=== PATIENT | female | born 1935 | race African-American/Black ===

== ENCOUNTER 2022-05-29 14:06 | Inpatient (IN) | payer OTHER, MEDICARE ==
[2022-05-29 16:53] LABS: BASO % 0.9 % (0-2.0); EOS % 0.6 % (0-4.5); HEMATOCRIT 37.6 % (32.4-45.2); HEMOGLOBIN 12.5 GM/dL (10.7-15.3); LYMPH % 33.9 % (8-40); MCH 30.2 pg (25.7-33.7); MCHC 33.2 g/dl (32.0-36.0); MEAN CELL VOLUME 91.1 fl (80-96); MEAN PLT VOLUME 8.4 fl (7.5-11.1); MONO % 9.6 % (3.8-10.2); PLATELET COUNT 238 10^3/uL (134-434); RBC 4.13 M/mm3 (3.60-5.2); WHITE BLOOD COUNT 5.1 K/mm3 (4.0-10.0)
[2022-05-29 17:05] LABS: INR 0.99 (0.83-1.09); PROTHROMBIN TIME (PATIENT) 11.4 SEC (9.7-13.0)
[2022-05-29 17:08] LABS: ACTIVATED PTT 27.3 SECONDS (25.2-36.5)
[2022-05-29 17:11] LABS: BLOOD UREA NITROGEN 8.9 mg/dL (7-18)
[2022-05-29 17:12] LABS: ALBUMIN 3.1 g/dl (3.4-5.0)
[2022-05-29 17:15] LABS: CREATININE 0.7 mg/dL (0.55-1.3)
[2022-05-29 17:16] LABS: BILIRUBIN,TOTAL 0.4 mg/dL (0.2-1); TOT PROT 6.6 g/dl (6.4-8.2)
[2022-05-29] MEDS ORDERED: CEFTRIAXONE 1,000 MG in DEXTROSE 5%-WATER - 50 ML IVPB ONE (19:43)
[2022-05-29] MEDS ORDERED: AZITHROMYCIN IVPB 500 MG in DEXTROSE 5%-WATER - 250 ML IVPB ONE (19:43)
[2022-05-29] MEDS ORDERED: CEFTRIAXONE 1 GM/50 ML BAG ONE (20:43)
[2022-05-29] MEDS ORDERED: AZITHROMYCIN IVPB 500 MG/250 ML BAG IVPB ONE (21:14)
[2022-05-29 23:23] LABS: MAGNESIUM 1.9 mg/dL (1.8-2.4)
[2022-05-29 23:27] LABS: PHOSPHOROUS 2.5 mg/dL (2.5-4.9)
[2022-05-29] MEDS ORDERED: ATORVASTATIN CA 40 MG TABLET (FP) ONE (23:52)
[2022-05-30] MEDS ORDERED: PANTOPRAZOLE 40 MG TABLET PO ONE (08:59)
[2022-05-30] MEDS ORDERED: ASPIRIN 81 MG CHEWABLE TABLETS ONE (09:00)
[2022-05-30] MEDS ORDERED: DONEPEZIL HCL 5 MG TABLET (FP) ONE (09:00)
[2022-05-30] MEDS ORDERED: ENOXAPARIN NA (PORCINE) 40 MG/0.4 ML DISP.SYRIN SQ ONE (09:00)
[2022-05-30] MEDS: INSULIN (LEVEMIR) 100 UNITS/ML UNITS SQ SCH ×2 (09:06→23:16)
[2022-05-30] MEDS: DONEPEZIL HCL 10 MG TABLET (FP) PO SCH (09:06)
[2022-05-30] MEDS: ASPIRIN 81 MG CHEWABLE TABLETS PO SCH (09:07)
[2022-05-30] MEDS: ENOXAPARIN NA (PORCINE) 40 MG/0.4 ML DISP.SYRIN SQ SCH (09:07)
[2022-05-30] MEDS: CALCIUM 500MG/VIT-D 200 UNITS COMBO TABLET (FP) PO SCH (09:07)
[2022-05-30] MEDS: PANTOPRAZOLE 40 MG TABLET PO SCH (09:07)
[2022-05-30] MEDS: INSULIN SLIDING SCALE (NOVOLOG) 1 VIAL SQ SCH ×4 (09:36→23:19)
[2022-05-30 09:47] LABS: ALBUMIN 3.3 g/dl (3.4-5.0)
[2022-05-30 09:48] LABS: BLOOD UREA NITROGEN 9.2 mg/dL (7-18); MAGNESIUM 1.8 mg/dL (1.8-2.4)
[2022-05-30 09:51] LABS: CREATININE 0.8 mg/dL (0.55-1.3); PHOSPHOROUS 2.1 mg/dL (2.5-4.9)
[2022-05-30 10:18] LABS: BILIRUBIN,TOTAL 0.5 mg/dL (0.2-1); TOT PROT 6.7 g/dl (6.4-8.2)
[2022-05-30] MEDS: ATORVASTATIN CA 40 MG TABLET (FP) PO SCH (23:16)
[2022-05-31] MEDS: INSULIN SLIDING SCALE (NOVOLOG) 1 VIAL SQ SCH ×4 (06:04→22:14)
[2022-05-31] MEDS: INSULIN (LEVEMIR) 100 UNITS/ML UNITS SQ SCH ×2 (06:11→22:19)
[2022-05-31] MEDS: ENOXAPARIN NA (PORCINE) 40 MG/0.4 ML DISP.SYRIN SQ SCH (10:10)
[2022-05-31] MEDS: ASPIRIN 81 MG CHEWABLE TABLETS PO SCH (10:10)
[2022-05-31] MEDS: PANTOPRAZOLE 40 MG TABLET PO SCH (10:10)
[2022-05-31] MEDS: DONEPEZIL HCL 10 MG TABLET (FP) PO SCH (10:10)
[2022-05-31] MEDS: CALCIUM 500MG/VIT-D 200 UNITS COMBO TABLET (FP) PO SCH (10:10)
[2022-05-31 10:21] LABS: BASO % 0.5 % (0-2.0); EOS % 0.1 % (0-4.5); HEMATOCRIT 40.8 % (32.4-45.2); HEMOGLOBIN 13.8 GM/dL (10.7-15.3); MCH 30.4 pg (25.7-33.7); MCHC 33.8 g/dl (32.0-36.0); MEAN CELL VOLUME 89.8 fl (80-96); MEAN PLT VOLUME 8.3 fl (7.5-11.1); MONO % 7.3 % (3.8-10.2); NEUT % 75.1 % (42.8-82.8); PLATELET COUNT 343 10^3/uL (134-434); RBC 4.55 M/mm3 (3.60-5.2); RDW 13.9 % (11.6-15.6); WHITE BLOOD COUNT 6.8 K/mm3 (4.0-10.0)
[2022-05-31 10:46] LABS: CALCIUM 9.6 mg/dL (8.5-10.1)
[2022-05-31 10:47] LABS: ALBUMIN 3.5 g/dl (3.4-5.0); BLOOD UREA NITROGEN 12.4 mg/dL (7-18)
[2022-05-31 10:51] LABS: BILIRUBIN,TOTAL 0.6 mg/dL (0.2-1); TOT PROT 7.2 g/dl (6.4-8.2)
[2022-05-31] MEDS: GABAPENTIN 100 MG CAPSULE PO SCH (14:40)
[2022-06-01] MEDS: QUEtiapine FUMARATE 25 MG TABLET PO SCH ×2 (00:27→22:14)
[2022-06-01] MEDS: GABAPENTIN 100 MG CAPSULE PO SCH ×4 (00:32→22:14)
[2022-06-01] MEDS: ATORVASTATIN CA 40 MG TABLET (FP) PO SCH ×2 (00:32→22:14)
[2022-06-01] MEDS: INSULIN SLIDING SCALE (NOVOLOG) 1 VIAL SQ SCH ×4 (06:24→22:13)
[2022-06-01] MEDS: INSULIN (LEVEMIR) 100 UNITS/ML UNITS SQ SCH ×2 (06:30→22:13)
[2022-06-01] MEDS: CALCIUM 500MG/VIT-D 200 UNITS COMBO TABLET (FP) PO SCH (09:07)
[2022-06-01] MEDS: PANTOPRAZOLE 40 MG TABLET PO SCH (09:07)
[2022-06-01] MEDS: ASPIRIN 81 MG CHEWABLE TABLETS PO SCH (09:07)
[2022-06-01] MEDS: DONEPEZIL HCL 10 MG TABLET (FP) PO SCH (09:07)
[2022-06-01] MEDS: ENOXAPARIN NA (PORCINE) 40 MG/0.4 ML DISP.SYRIN SQ SCH (09:08)
[2022-06-01 10:29] LABS: BASO % 0.9 % (0-2.0); HEMATOCRIT 37.6 % (32.4-45.2); HEMOGLOBIN 12.6 GM/dL (10.7-15.3); LYMPH % 30.4 % (8-40); MCH 30.4 pg (25.7-33.7); MCHC 33.4 g/dl (32.0-36.0); MEAN CELL VOLUME 90.9 fl (80-96); MONO % 7.8 % (3.8-10.2); NEUT % 58.9 % (42.8-82.8); PLATELET COUNT 293 10^3/uL (134-434); RBC 4.13 M/mm3 (3.60-5.2); RDW 13.7 % (11.6-15.6); WHITE BLOOD COUNT 6.1 K/mm3 (4.0-10.0)
[2022-06-01 11:13] LABS: BLOOD UREA NITROGEN 17.3 mg/dL (7-18)
[2022-06-01 11:15] LABS: CALCIUM 9.1 mg/dL (8.5-10.1)
[2022-06-01 11:16] LABS: CREATININE 0.7 mg/dL (0.55-1.3); MAGNESIUM 1.9 mg/dL (1.8-2.4)
[2022-06-02] MEDS: INSULIN SLIDING SCALE (NOVOLOG) 1 VIAL SQ SCH ×4 (06:08→22:14)
[2022-06-02] MEDS: INSULIN (LEVEMIR) 100 UNITS/ML UNITS SQ SCH ×2 (06:08→22:13)
[2022-06-02] MEDS: GABAPENTIN 100 MG CAPSULE PO SCH ×3 (06:08→22:03)
[2022-06-02] MEDS: ENOXAPARIN NA (PORCINE) 40 MG/0.4 ML DISP.SYRIN SQ SCH (09:00)
[2022-06-02] MEDS: CALCIUM 500MG/VIT-D 200 UNITS COMBO TABLET (FP) PO SCH (09:00)
[2022-06-02] MEDS: DONEPEZIL HCL 10 MG TABLET (FP) PO SCH (09:00)
[2022-06-02] MEDS: ASPIRIN 81 MG CHEWABLE TABLETS PO SCH (09:00)
[2022-06-02] MEDS: PANTOPRAZOLE 40 MG TABLET PO SCH (09:00)
[2022-06-02 10:07] LABS: ARTERIAL BLD GAS O2 SATURATION 94.6 % (95-98); ARTERIAL BLOOD GAS BASE EXCESS 2.9 mmol/L (-2-2); ARTERIAL BLOOD GAS PO2 67.9 mmHg (80-100); ARTERIAL BLOOD GAS pH 7.469 (7.350-7.450)
[2022-06-02 10:14] LABS: ALLENS TEST POSITIVE
[2022-06-02 10:15] LABS: PT'S TEMP 94.5 AG
[2022-06-02] MEDS: ACETAMINOPHEN 325 MG TABLET (FP) PO PRN (17:39)
[2022-06-02 18:33] LABS: CALCIUM 9.3 mg/dL (8.5-10.1)
[2022-06-02 18:37] LABS: CREATININE 0.8 mg/dL (0.55-1.3)
[2022-06-02] MEDS: ATORVASTATIN CA 40 MG TABLET (FP) PO SCH (22:04)
[2022-06-02] MEDS: QUEtiapine FUMARATE 25 MG TABLET PO SCH (22:15)
[2022-06-03] MEDS: GABAPENTIN 100 MG CAPSULE PO SCH ×3 (06:10→22:00)
[2022-06-03] MEDS: INSULIN SLIDING SCALE (NOVOLOG) 1 VIAL SQ SCH ×4 (06:46→22:00)
[2022-06-03] MEDS: INSULIN (LEVEMIR) 100 UNITS/ML UNITS SQ SCH ×2 (06:47→22:00)
[2022-06-03 08:51] LABS: CALCIUM 9.2 mg/dL (8.5-10.1)
[2022-06-03 08:52] LABS: ALBUMIN 3.1 g/dl (3.4-5.0); BLOOD UREA NITROGEN 15.2 mg/dL (7-18); MAGNESIUM 2.1 mg/dL (1.8-2.4)
[2022-06-03 08:54] LABS: BASO % 0.7 % (0-2.0); EOS % 1.8 % (0-4.5); HEMATOCRIT 41.1 % (32.4-45.2); HEMOGLOBIN 13.4 GM/dL (10.7-15.3); LYMPH % 22.1 % (8-40); MCH 30.1 pg (25.7-33.7); MCHC 32.6 g/dl (32.0-36.0); MEAN CELL VOLUME 92.6 fl (80-96); MEAN PLT VOLUME 8.1 fl (7.5-11.1); MONO % 9.5 % (3.8-10.2); NEUT % 65.9 % (42.8-82.8); PLATELET COUNT 312 10^3/uL (134-434); RBC 4.44 M/mm3 (3.60-5.2); RDW 14.3 % (11.6-15.6); WHITE BLOOD COUNT 6.7 K/mm3 (4.0-10.0)
[2022-06-03 08:55] LABS: CREATININE 0.8 mg/dL (0.55-1.3); PHOSPHOROUS 3.2 mg/dL (2.5-4.9)
[2022-06-03 08:56] LABS: BILIRUBIN,TOTAL 0.5 mg/dL (0.2-1); TOT PROT 6.4 g/dl (6.4-8.2)
[2022-06-03] MEDS: PANTOPRAZOLE 40 MG TABLET PO SCH (09:00)
[2022-06-03] MEDS: CALCIUM 500MG/VIT-D 200 UNITS COMBO TABLET (FP) PO SCH (09:00)
[2022-06-03] MEDS: ENOXAPARIN NA (PORCINE) 40 MG/0.4 ML DISP.SYRIN SQ SCH (09:00)
[2022-06-03] MEDS: ASPIRIN 81 MG CHEWABLE TABLETS PO SCH (09:00)
[2022-06-03] MEDS: DONEPEZIL HCL 10 MG TABLET (FP) PO SCH (09:00)
[2022-06-03] MEDS: BENZOCAINE/MENTH/CETYLPYRD CL 1 EACH LOZENGE MM PRN (09:04)
[2022-06-03] MEDS: ACETAMINOPHEN 325 MG TABLET (FP) PO PRN (10:58)
[2022-06-03] MEDS: QUEtiapine FUMARATE 25 MG TABLET PO SCH (22:00)
[2022-06-03] MEDS: ATORVASTATIN CA 40 MG TABLET (FP) PO SCH (22:00)
[2022-06-04] MEDS: GABAPENTIN 100 MG CAPSULE PO SCH ×3 (06:53→22:18)
[2022-06-04] MEDS: INSULIN SLIDING SCALE (NOVOLOG) 1 VIAL SQ SCH ×3 (07:11→17:05)
[2022-06-04] MEDS: INSULIN (LEVEMIR) 100 UNITS/ML UNITS SQ SCH ×2 (07:11→22:00)
[2022-06-04 08:38] LABS: HEMOGLOBIN 13.4 GM/dL (10.7-15.3); MCH 30.6 pg (25.7-33.7); MCHC 33.4 g/dl (32.0-36.0); MEAN CELL VOLUME 91.5 fl (80-96); MEAN PLT VOLUME 8.1 fl (7.5-11.1); PLATELET COUNT 339 10^3/uL (134-434); RBC 4.37 M/mm3 (3.60-5.2); WHITE BLOOD COUNT 6.3 K/mm3 (4.0-10.0)
[2022-06-04 08:45] LABS: CALCIUM 9.5 mg/dL (8.5-10.1)
[2022-06-04 08:46] LABS: BLOOD UREA NITROGEN 11.9 mg/dL (7-18)
[2022-06-04 08:49] LABS: CREATININE 0.7 mg/dL (0.55-1.3)
[2022-06-04] MEDS: DONEPEZIL HCL 10 MG TABLET (FP) PO SCH (10:39)
[2022-06-04] MEDS: ENOXAPARIN NA (PORCINE) 40 MG/0.4 ML DISP.SYRIN SQ SCH (10:39)
[2022-06-04] MEDS: PANTOPRAZOLE 40 MG TABLET PO SCH (10:39)
[2022-06-04] MEDS: ASPIRIN 81 MG CHEWABLE TABLETS PO SCH (10:39)
[2022-06-04] MEDS: CALCIUM 500MG/VIT-D 200 UNITS COMBO TABLET (FP) PO SCH (10:39)
[2022-06-04] MEDS ORDERED: SODIUM CHLORIDE 0.45% 1,000 ML IV SCH (18:30)
[2022-06-04] MEDS: ATORVASTATIN CA 40 MG TABLET (FP) PO SCH (22:16)
[2022-06-04] MEDS: QUEtiapine FUMARATE 25 MG TABLET PO SCH (22:16)
[2022-06-05] MEDS: GABAPENTIN 100 MG CAPSULE PO SCH ×3 (05:56→21:54)
[2022-06-05] MEDS: INSULIN SLIDING SCALE (NOVOLOG) 1 VIAL SQ SCH ×5 (05:57→21:59)
[2022-06-05] MEDS: INSULIN (LEVEMIR) 100 UNITS/ML UNITS SQ SCH ×2 (06:33→22:00)
[2022-06-05] MEDS: BENZOCAINE/MENTH/CETYLPYRD CL 1 EACH LOZENGE MM PRN (07:25)
[2022-06-05 08:14] LABS: HEMATOCRIT 38.7 % (32.4-45.2); MCH 30.6 pg (25.7-33.7); MCHC 33.5 g/dl (32.0-36.0); MEAN CELL VOLUME 91.5 fl (80-96); PLATELET COUNT 323 10^3/uL (134-434); RBC 4.23 M/mm3 (3.60-5.2); RDW 13.8 % (11.6-15.6); WHITE BLOOD COUNT 5.3 K/mm3 (4.0-10.0)
[2022-06-05 08:26] LABS: CALCIUM 9.1 mg/dL (8.5-10.1)
[2022-06-05 08:27] LABS: BLOOD UREA NITROGEN 14.1 mg/dL (7-18)
[2022-06-05 08:30] LABS: CREATININE 0.7 mg/dL (0.55-1.3)
[2022-06-05] MEDS: PANTOPRAZOLE 40 MG TABLET PO SCH (10:22)
[2022-06-05] MEDS: DONEPEZIL HCL 10 MG TABLET (FP) PO SCH (10:22)
[2022-06-05] MEDS: CALCIUM 500MG/VIT-D 200 UNITS COMBO TABLET (FP) PO SCH (10:22)
[2022-06-05] MEDS: ENOXAPARIN NA (PORCINE) 40 MG/0.4 ML DISP.SYRIN SQ SCH (10:22)
[2022-06-05] MEDS: ASPIRIN 81 MG CHEWABLE TABLETS PO SCH (10:22)
[2022-06-05] MEDS: DOCUSATE SODIUM 100 MG CAPSULE (FP) PO PRN (15:59)
[2022-06-05] MEDS: ACETAMINOPHEN 325 MG TABLET (FP) PO PRN (15:59)
[2022-06-05] MEDS: ATORVASTATIN CA 40 MG TABLET (FP) PO SCH (21:54)
[2022-06-05] MEDS: QUEtiapine FUMARATE 25 MG TABLET PO SCH (21:54)
[2022-06-06] MEDS: INSULIN SLIDING SCALE (NOVOLOG) 1 VIAL SQ SCH ×4 (06:45→23:00)
[2022-06-06] MEDS: GABAPENTIN 100 MG CAPSULE PO SCH ×3 (06:45→21:30)
[2022-06-06] MEDS: INSULIN (LEVEMIR) 100 UNITS/ML UNITS SQ SCH ×2 (06:46→21:30)
[2022-06-06 08:36] LABS: BASO % 1.1 % (0-2.0); EOS % 2.7 % (0-4.5); HEMATOCRIT 39.1 % (32.4-45.2); HEMOGLOBIN 12.9 GM/dL (10.7-15.3); LYMPH % 25.8 % (8-40); MCH 30.3 pg (25.7-33.7); MCHC 33.1 g/dl (32.0-36.0); MEAN CELL VOLUME 91.5 fl (80-96); MEAN PLT VOLUME 8.2 fl (7.5-11.1); NEUT % 61.4 % (42.8-82.8); PLATELET COUNT 327 10^3/uL (134-434); RBC 4.27 M/mm3 (3.60-5.2); WHITE BLOOD COUNT 4.9 K/mm3 (4.0-10.0)
[2022-06-06 08:48] LABS: CALCIUM 9.2 mg/dL (8.5-10.1)
[2022-06-06 08:49] LABS: ALBUMIN 2.9 g/dl (3.4-5.0)
[2022-06-06 08:52] LABS: CREATININE 0.7 mg/dL (0.55-1.3)
[2022-06-06 08:53] LABS: TOT PROT 6.1 g/dl (6.4-8.2)
[2022-06-06 08:54] LABS: BILIRUBIN,TOTAL 0.5 mg/dL (0.2-1); MAGNESIUM 2.1 mg/dL (1.8-2.4)
[2022-06-06] MEDS: PANTOPRAZOLE 40 MG TABLET PO SCH (10:23)
[2022-06-06] MEDS: DONEPEZIL HCL 10 MG TABLET (FP) PO SCH (10:23)
[2022-06-06] MEDS: ASPIRIN 81 MG CHEWABLE TABLETS PO SCH (10:23)
[2022-06-06] MEDS: CALCIUM 500MG/VIT-D 200 UNITS COMBO TABLET (FP) PO SCH (10:23)
[2022-06-06] MEDS: ENOXAPARIN NA (PORCINE) 40 MG/0.4 ML DISP.SYRIN SQ SCH (10:23)
[2022-06-06] MEDS: DOCUSATE SODIUM 100 MG CAPSULE (FP) PO PRN (10:32)
[2022-06-06] MEDS: AMOX TR/POT CLAV 500MG/125MG TABLETS (FP) PO SCH (17:30)
[2022-06-06 19:58] LABS: PH,URINE 6.5 (5.0-8.0); URINE APPEARANCE CLEAR; URINE BILIRUBIN NEGATIVE (NEGATIVE); URINE COLOR YELLOW; URINE GLUCOSE (UA) TRACE (NEGATIVE); URINE KETONE TRACE (NEGATIVE); URINE LEUK ESTERASE NEGATIVE (NEGATIVE); URINE NITRITE NEGATIVE (NEGATIVE); URINE PROTEIN TRACE (NEGATIVE)
[2022-06-06] MEDS: ATORVASTATIN CA 40 MG TABLET (FP) PO SCH (21:30)
[2022-06-06] MEDS: QUEtiapine FUMARATE 25 MG TABLET PO SCH (21:30)
[2022-06-06] MEDS ORDERED: LORazepam 2 MG/ML SDV VIAL IVPUSH ONE (22:22)
[2022-06-06] MEDS: levETIRAcetam 500 MG/5 ML INJECTION VIAL IVPB SCH (22:45)
[2022-06-07] MEDS: GABAPENTIN 100 MG CAPSULE PO SCH ×3 (06:42→21:12)
[2022-06-07] MEDS: INSULIN (LEVEMIR) 100 UNITS/ML UNITS SQ SCH ×2 (06:43→21:22)
[2022-06-07] MEDS: INSULIN SLIDING SCALE (NOVOLOG) 1 VIAL SQ SCH ×4 (06:43→21:20)
[2022-06-07 08:03] LABS: BASO % 0.8 % (0-2.0); EOS % 1.1 % (0-4.5); HEMATOCRIT 35.7 % (32.4-45.2); HEMOGLOBIN 11.9 GM/dL (10.7-15.3); LYMPH % 20.6 % (8-40); MCH 30.4 pg (25.7-33.7); MCHC 33.3 g/dl (32.0-36.0); MEAN CELL VOLUME 91.1 fl (80-96); MEAN PLT VOLUME 8.3 fl (7.5-11.1); MONO % 6.1 % (3.8-10.2); NEUT % 71.4 % (42.8-82.8); PLATELET COUNT 308 10^3/uL (134-434); RBC 3.91 M/mm3 (3.60-5.2); RDW 13.5 % (11.6-15.6); WHITE BLOOD COUNT 5.9 K/mm3 (4.0-10.0)
[2022-06-07 08:42] LABS: CALCIUM 9.1 mg/dL (8.5-10.1)
[2022-06-07 08:43] LABS: ALBUMIN 2.9 g/dl (3.4-5.0); BLOOD UREA NITROGEN 14.8 mg/dL (7-18); MAGNESIUM 2.1 mg/dL (1.8-2.4)
[2022-06-07 08:45] LABS: CREATININE 0.7 mg/dL (0.55-1.3); PHOSPHOROUS 3.8 mg/dL (2.5-4.9)
[2022-06-07 08:47] LABS: BILIRUBIN,TOTAL 0.6 mg/dL (0.2-1)
[2022-06-07] MEDS: ENOXAPARIN NA (PORCINE) 40 MG/0.4 ML DISP.SYRIN SQ SCH (10:30)
[2022-06-07] MEDS: CALCIUM 500MG/VIT-D 200 UNITS COMBO TABLET (FP) PO SCH (10:30)
[2022-06-07] MEDS: ASPIRIN 81 MG CHEWABLE TABLETS PO SCH (10:30)
[2022-06-07] MEDS: levETIRAcetam 500 MG/5 ML INJECTION VIAL IVPB SCH ×2 (10:30→21:11)
[2022-06-07] MEDS: AMOX TR/POT CLAV 500MG/125MG TABLETS (FP) PO SCH ×2 (10:30→17:44)
[2022-06-07] MEDS: PANTOPRAZOLE 40 MG TABLET PO SCH (10:30)
[2022-06-07] MEDS: DONEPEZIL HCL 10 MG TABLET (FP) PO SCH (10:30)
[2022-06-07] MEDS: QUEtiapine FUMARATE 25 MG TABLET PO SCH (21:11)
[2022-06-07] MEDS: ATORVASTATIN CA 40 MG TABLET (FP) PO SCH (21:12)
[2022-06-08] MEDS: INSULIN (LEVEMIR) 100 UNITS/ML UNITS SQ SCH ×2 (06:37→22:59)
[2022-06-08] MEDS: GABAPENTIN 100 MG CAPSULE PO SCH ×3 (06:55→22:44)
[2022-06-08] MEDS: INSULIN SLIDING SCALE (NOVOLOG) 1 VIAL SQ SCH ×4 (06:55→22:59)
[2022-06-08 07:43] LABS: CALCIUM 9.3 mg/dL (8.5-10.1)
[2022-06-08 07:44] LABS: BLOOD UREA NITROGEN 14.4 mg/dL (7-18)
[2022-06-08 07:47] LABS: CREATININE 0.7 mg/dL (0.55-1.3)
[2022-06-08] MEDS: ASPIRIN 81 MG CHEWABLE TABLETS PO SCH (09:29)
[2022-06-08] MEDS: CALCIUM 500MG/VIT-D 200 UNITS COMBO TABLET (FP) PO SCH (09:29)
[2022-06-08] MEDS: metoPROLOL SUCCINATE 25 MG TAB.SR.24H (FP) PO SCH (09:29)
[2022-06-08] MEDS: DONEPEZIL HCL 10 MG TABLET (FP) PO SCH (09:29)
[2022-06-08] MEDS: PANTOPRAZOLE 40 MG TABLET PO SCH (09:29)
[2022-06-08] MEDS: ENOXAPARIN NA (PORCINE) 40 MG/0.4 ML DISP.SYRIN SQ SCH (09:29)
[2022-06-08] MEDS: levETIRAcetam 500 MG/5 ML INJECTION VIAL IVPB SCH ×2 (09:30→22:43)
[2022-06-08] MEDS: AMOX TR/POT CLAV 500MG/125MG TABLETS (FP) PO SCH ×2 (09:30→18:05)
[2022-06-08 15:14] VITALS: RESP 20
[2022-06-08] MEDS: LACTATED RINGERS SOLUTION 1,000 ML/1,000 ML INFUS.BAG IV SCH (16:33)
[2022-06-08 17:04] VITALS: BMI 35.7
[2022-06-08] MEDS ORDERED: INSULIN (NOVOLOG) ASPART 100 UNITS/ML 10ML VIAL ONE (22:28)
[2022-06-08] MEDS: QUEtiapine FUMARATE 25 MG TABLET PO SCH (22:44)
[2022-06-08] MEDS: ATORVASTATIN CA 40 MG TABLET (FP) PO SCH (22:44)
[2022-06-08] MEDS: ACETAMINOPHEN 325 MG TABLET (FP) PO PRN (22:45)
[2022-06-09] MEDS: GABAPENTIN 100 MG CAPSULE PO SCH ×2 (05:54→14:10)
[2022-06-09] MEDS: INSULIN SLIDING SCALE (NOVOLOG) 1 VIAL SQ SCH ×4 (06:03→22:59)
[2022-06-09] MEDS: INSULIN (LEVEMIR) 100 UNITS/ML UNITS SQ SCH ×2 (06:03→22:40)
[2022-06-09] MEDS: ASPIRIN 81 MG CHEWABLE TABLETS PO SCH (09:58)
[2022-06-09] MEDS: CALCIUM 500MG/VIT-D 200 UNITS COMBO TABLET (FP) PO SCH (09:58)
[2022-06-09] MEDS: AMOX TR/POT CLAV 500MG/125MG TABLETS (FP) PO SCH ×2 (09:58→16:49)
[2022-06-09] MEDS: levETIRAcetam 500 MG/5 ML INJECTION VIAL IVPB SCH ×2 (09:58→22:37)
[2022-06-09] MEDS: PANTOPRAZOLE 40 MG TABLET PO SCH (09:58)
[2022-06-09] MEDS: metoPROLOL SUCCINATE 25 MG TAB.SR.24H (FP) PO SCH (09:58)
[2022-06-09] MEDS: DONEPEZIL HCL 10 MG TABLET (FP) PO SCH (09:58)
[2022-06-09] MEDS: ENOXAPARIN NA (PORCINE) 40 MG/0.4 ML DISP.SYRIN SQ SCH (09:58)
[2022-06-09 10:20] LABS: BLOOD UREA NITROGEN 14.3 mg/dL (7-18); CALCIUM 9.6 mg/dL (8.5-10.1)
[2022-06-09 10:21] LABS: MAGNESIUM 2.1 mg/dL (1.8-2.4)
[2022-06-09 10:23] LABS: PHOSPHOROUS 2.6 mg/dL (2.5-4.9)
[2022-06-09 10:24] LABS: CREATININE 0.8 mg/dL (0.55-1.3)
[2022-06-09 12:24] LABS: HEMATOCRIT 37.9 % (32.4-45.2); HEMOGLOBIN 12.4 GM/dL (10.7-15.3); MCH 30.4 pg (25.7-33.7); MCHC 32.8 g/dl (32.0-36.0); MEAN CELL VOLUME 92.6 fl (80-96); MEAN PLT VOLUME 8.4 fl (7.5-11.1); PLATELET COUNT 273 10^3/uL (134-434); RBC 4.09 M/mm3 (3.60-5.2); RDW 13.8 % (11.6-15.6); WHITE BLOOD COUNT 6.6 K/mm3 (4.0-10.0)
[2022-06-09] MEDS: LACTATED RINGERS SOLUTION 1,000 ML/1,000 ML INFUS.BAG IV SCH (16:49)
[2022-06-09] MEDS ORDERED: TRIMETHOBENZAMIDE HCL 200MG/2ML INJ IM ONE (17:12)
[2022-06-09] MEDS ORDERED: LORazepam 2 MG/ML SDV VIAL IVPUSH ONE (18:13)
[2022-06-09] MEDS ORDERED: LORazepam 2 MG/ML SDV VIAL IVPUSH PRN (18:25)
[2022-06-09] MEDS: ATORVASTATIN CA 40 MG TABLET (FP) PO SCH (22:38)
[2022-06-09] MEDS: QUEtiapine FUMARATE 25 MG TABLET PO SCH (23:38)
[2022-06-09 23:57] LABS: ALLENS TEST POSITIVE; ARTERIAL BLD GAS O2 SATURATION 98.5 % (95-98); ARTERIAL BLOOD GAS BASE EXCESS 0.5 mmol/L (-2-2); ARTERIAL BLOOD GAS PO2 131.1 mmHg (80-100); ARTERIAL BLOOD GAS pH 7.373 (7.350-7.450)
[2022-06-10] MEDS: INSULIN (LEVEMIR) 100 UNITS/ML UNITS SQ SCH ×2 (06:07→21:41)
[2022-06-10] MEDS: INSULIN SLIDING SCALE (NOVOLOG) 1 VIAL SQ SCH ×4 (06:08→21:42)
[2022-06-10 08:31] LABS: BASO % 0.8 % (0-2.0); EOS % 3.4 % (0-4.5); HEMATOCRIT 35.5 % (32.4-45.2); HEMOGLOBIN 11.8 GM/dL (10.7-15.3); LYMPH % 16.1 % (8-40); MCH 30.4 pg (25.7-33.7); MCHC 33.3 g/dl (32.0-36.0); MEAN CELL VOLUME 91.6 fl (80-96); MEAN PLT VOLUME 8.7 fl (7.5-11.1); MONO % 7.2 % (3.8-10.2); NEUT % 72.5 % (42.8-82.8); PLATELET COUNT 289 10^3/uL (134-434); RBC 3.88 M/mm3 (3.60-5.2); RDW 13.5 % (11.6-15.6); WHITE BLOOD COUNT 5.5 K/mm3 (4.0-10.0)
[2022-06-10 09:17] LABS: CALCIUM 9.4 mg/dL (8.5-10.1)
[2022-06-10 09:18] LABS: BLOOD UREA NITROGEN 8.4 mg/dL (7-18)
[2022-06-10 09:21] LABS: CREATININE 0.6 mg/dL (0.55-1.3)
[2022-06-10] MEDS: ASPIRIN 81 MG CHEWABLE TABLETS PO SCH (10:34)
[2022-06-10] MEDS: CALCIUM 500MG/VIT-D 200 UNITS COMBO TABLET (FP) PO SCH (10:34)
[2022-06-10] MEDS: DONEPEZIL HCL 10 MG TABLET (FP) PO SCH (10:34)
[2022-06-10] MEDS: PANTOPRAZOLE 40 MG TABLET PO SCH (10:34)
[2022-06-10] MEDS: metoPROLOL SUCCINATE 25 MG TAB.SR.24H (FP) PO SCH (10:35)
[2022-06-10] MEDS: ENOXAPARIN NA (PORCINE) 40 MG/0.4 ML DISP.SYRIN SQ SCH (10:39)
[2022-06-10] MEDS: levETIRAcetam 500 MG/5 ML INJECTION VIAL IVPB SCH ×2 (10:39→21:41)
[2022-06-10] MEDS ORDERED: ACETAMINOPHEN 1000 MG/100 ML BAG IVPB ONE (11:36)
[2022-06-10] MEDS: ATORVASTATIN CA 40 MG TABLET (FP) PO SCH (21:41)
[2022-06-10] MEDS: QUEtiapine FUMARATE 25 MG TABLET PO SCH ×2 (21:42→22:30)
[2022-06-10] MEDS ORDERED: DEXTROSE 50%-WATER 25 GM/50 ML DISP.SYRIN ONE (22:01)
[2022-06-10] MEDS ORDERED: DEXTROSE 50%-WATER - 25 GM/50 ML VIAL IVPUSH ONE (23:04)
[2022-06-10] MEDS ORDERED: DEXTROSE 50%-WATER 25 GM/50 ML DISP.SYRIN IVPUSH ONE (23:04)
[2022-06-11] MEDS: INSULIN (LEVEMIR) 100 UNITS/ML UNITS SQ SCH (07:20)
[2022-06-11] MEDS: INSULIN SLIDING SCALE (NOVOLOG) 1 VIAL SQ SCH ×4 (07:21→23:24)
[2022-06-11] MEDS ORDERED: DEXTROSE 50%-WATER - 25 GM/50 ML VIAL IVPUSH PRN (07:49)
[2022-06-11] MEDS: DONEPEZIL HCL 10 MG TABLET (FP) PO SCH (09:13)
[2022-06-11] MEDS: ASPIRIN 81 MG CHEWABLE TABLETS PO SCH (09:14)
[2022-06-11] MEDS: PANTOPRAZOLE 40 MG TABLET PO SCH (09:14)
[2022-06-11] MEDS: metoPROLOL SUCCINATE 25 MG TAB.SR.24H (FP) PO SCH (09:14)
[2022-06-11] MEDS: CALCIUM 500MG/VIT-D 200 UNITS COMBO TABLET (FP) PO SCH (09:14)
[2022-06-11] MEDS: levETIRAcetam 500 MG/5 ML INJECTION VIAL IVPB SCH ×2 (09:14→22:30)
[2022-06-11] MEDS: ENOXAPARIN NA (PORCINE) 40 MG/0.4 ML DISP.SYRIN SQ SCH (09:14)
[2022-06-11] MEDS ORDERED: METOPROLOL TARTRATE 5 MG/5 ML VIAL IVPUSH PRN (10:05)
[2022-06-11 17:05] LABS: HEMATOCRIT 40.2 % (32.4-45.2); HEMOGLOBIN 13.1 GM/dL (10.7-15.3); MCH 29.7 pg (25.7-33.7); MCHC 32.6 g/dl (32.0-36.0); MEAN PLT VOLUME 8.8 fl (7.5-11.1); PLATELET COUNT 294 10^3/uL (134-434); RBC 4.42 M/mm3 (3.60-5.2); RDW 13.8 % (11.6-15.6); WHITE BLOOD COUNT 10.2 K/mm3 (4.0-10.0)
[2022-06-11 17:24] LABS: CALCIUM 9.2 mg/dL (8.5-10.1)
[2022-06-11 17:25] LABS: BLOOD UREA NITROGEN 7.3 mg/dL (7-18)
[2022-06-11 17:28] LABS: CREATININE 0.7 mg/dL (0.55-1.3)
[2022-06-11 20:04] VITALS: BP 165/72; PULSE 86; TEMP 98.2
[2022-06-11] MEDS: ATORVASTATIN CA 40 MG TABLET (FP) PO SCH (22:30)
[2022-06-12] MEDS ORDERED: INSULIN (LEVEMIR) 100 UNITS/ML UNITS SQ SCH (07:00)
== END 2022-06-11 23:29 | disposition short-term general hospital (02) | DRG 177 ==
LOC: JER 14:06 → JERBED 19:24 → J5S 05-30 19:04 → J4W 06-02 11:26
PROVIDERS: ADMIT Internal Medicine; ATTEND Internal Medicine
DX: U07.1 COVID-19 (principal); G93.41 Metabolic encephalopathy; J12.82 Pneumonia due to coronavirus disease 2019; E87.3 Alkalosis; E11.65 Type 2 diabetes mellitus with hyperglycemia; R41.82 Altered mental status, unspecified; G40.909 Epilepsy, unspecified, not intractable, without status epilepticus; I48.91 Unspecified atrial fibrillation; F03.90 Unspecified dementia, unspecified severity, without behavioral disturbance, psychotic disturbance, mood disturbance, and anxiety; K21.9 Gastro-esophageal reflux disease without esophagitis; M54.9 Dorsalgia, unspecified; I87.8 Other specified disorders of veins; J32.9 Chronic sinusitis, unspecified; R11.2 Nausea with vomiting, unspecified; R26.81 Unsteadiness on feet; E11.649 Type 2 diabetes mellitus with hypoglycemia without coma; R62.7 Adult failure to thrive; E11.40 Type 2 diabetes mellitus with diabetic neuropathy, unspecified; Z68.35 Body mass index [BMI] 35.0-35.9, adult; E66.9 Obesity, unspecified; Z95.818 Presence of other cardiac implants and grafts; Z86.73 Personal history of transient ischemic attack (TIA), and cerebral infarction without residual deficits
CPT/HCPCS: 0241U-QW; 36415; 36600; 70450-TC; 70496-TC; 70498-TC; 71045-TC-FY; 74018-TC-FY; 80048; 80053; 80061; 80177; 81003; 82550; 82553; 82803; 82962; 83036; 83605; 83735; 83880; 84100; 84146; 84443; 84484; 85025; 85027; 85610; 85730; 86140; 87086; 93005; 93010; 97116-GP; 97161-GP; 99285-25; C9803-CS; U0003; U0005